=== PATIENT | female | born 1990 ===

== ENCOUNTER 2016-09-02 14:04 | Emergency (ER) | payer SELFPAY ==
[~2016-09-02] VITALS: Ht 175.3 cm; Wt 78.0 kg
[2016-09-02 16:03] VITALS: BP 129/70
[2016-09-02] MEDS ORDERED: MOTRIN800 MG PO (16:53)
[2016-09-02] MEDS ORDERED: PERCOCET 5/31 TABLET PO (16:53)
== END 2016-09-02 18:09 | disposition home or self-care (01) ==
LOC: EME 14:04
PROC: 0PSGXZZ Reposition Left Humeral Shaft, External Approach (ICD-10-PCS; principal; 2016-09-02)
DX: S42.402A Unspecified fracture of lower end of left humerus, initial encounter for closed fracture (principal); W19.XXXA Unspecified fall, initial encounter; Y93.23 Activity, snow (alpine) (downhill) skiing, snowboarding, sledding, tobogganing and snow tubing
CPT/HCPCS: 73080; 99281; 99284; J2270; J2405; J7030